=== PATIENT | male | born 1990 | race Caucasian/White ===

== ENCOUNTER 2022-02-01 11:01 | Inpatient (IN) ==
[2022-02-01 12:55] LABS: ABS Eosinophils 0.1 10^3/ul (0-0.6); ABS Lymphocytes 1.3 10^3/ul (1.0-4.8); ABS Monocytes 0.8 10^3/ul (0-0.8); ABS Neutrophils 8.6 10^3/ul (1.5-7.7); Eosinophil % 0.9 %; Hematocrit 41 % (42-52); Hemoglobin 14.3 g/dL (14.0-18.0); Lymphocyte % 11.9 %; Mean Corpuscular HGB Conc 35 g/dL (31-36); Mean Corpuscular Hemoglobin 30 pg (27-31); Mean Corpuscular Volume 88 fL (80-94); Mean Platelet Volume 8.1 fL (7.4-10.4); Platelet Count 360 10^3/uL (150-450); Red Blood Count 4.71 10^6 /uL (4.18-5.48); Red Cell Distribution Width 13 % (10-15); White Blood Count 10.8 10^3/uL (3.5-10.8)
[2022-02-01 13:37] LABS: ALT 77 U/L (7-52); AST 43 U/L (13-39); Acetaminophen < 15 mcg/mL; Albumin 5.1 g/dL (3.2-5.2); Albumin/Globulin Ratio 2.1 (1-3); Alcohol, S < 13 mg/dL (<13); Alkaline Phosphatase 69 U/L (35-149); Anion Gap 7 mmol/L (2-11); Blood Urea Nitrogen 7 mg/dL (6-24); CO2 Carbon Dioxide 29 mmol/L (22-32); Chloride 103 mmol/L (101-111); Globulin 2.4 g/dL (2-4); Glucose 106 mg/dL (70-100); Lithium < 0.10 mmol/L (0.6-1.2); Potassium 3.9 mmol/L (3.5-5.0); Salicylate < 2.50 mg/dL (<30); Sodium 139 mmol/L (135-145); Total Protein 7.5 g/dL (6.4-8.9); Valproic Acid < 13.0 mcg/mL (50-100); eGFR CKD-EPI 94.7 (>60)
[2022-02-01] MEDS ORDERED: Haloperidol 5 mg/ml SDV IV/IM 5 MG/ML AMP IM ONE (13:45)
[2022-02-01] MEDS ORDERED: Lorazepam PYXIS KEY PRN (13:45)
[2022-02-01] MEDS ORDERED: LORazepam 2 mg VIAL 1 ml IM ONE (13:45)
[2022-02-01 13:50] LABS: TSH Ultra Thyroid Stim Horm 2.62 mcIU/mL (0.34-5.60)
[2022-02-01 15:06] LABS: Urine Benzodiazepine Screen None Detected (None Detect); Urine Cannabinoids Screen Presumptive Positive (None Detect); Urine Opiates Screen None Detected (None Detect)
[2022-02-01] MEDS ORDERED: Nicotine GUM 4MG FRUIT FLAVOR PO PRN (16:56)
[2022-02-01] MEDS ORDERED: Al Hydrox/Mg Hydrox/Simet LIQ 30 ML UDC PO PRN (16:56)
[2022-02-03] MEDS ORDERED: OLANZapine 10 mg TAB*ODT PO ONE (11:07)
[2022-02-03] MEDS ORDERED: OLANZapine 10 mg TAB*ODT PO PRN (19:55)
[2022-02-05] MEDS ORDERED: Paliperidone SUSTENNA 234 MG/1.5 ML IM ONE (14:00)
[2022-02-08 07:41] LABS: HDL Cholesterol 45.2 mg/dL
[2022-02-08] MEDS ORDERED: Paliperidone SUSTENNA 156 MG/1 ML IM ONE (15:00)
[2022-02-09 07:40] VITALS: BP 155/83
== END 2022-02-09 11:02 | disposition home or self-care (01) | DRG 750 ==
LOC: ED 11:01 → EDHOLD 16:56 → BSU 17:30
PROVIDERS: ADMIT Psychiatry & Neurology Psychiatry; ATTEND Psychiatry & Neurology Psychiatry

== ENCOUNTER 2023-09-22 04:59 | Inpatient (IN) ==
[2023-09-22 05:42] LABS: ABS Basophils 0.1 10^3/uL (0.0-0.1); ABS Eosinophils 0.3 10^3/uL (0.0-0.5); ABS Lymphocytes 1.5 10^3/uL (1.0-4.8); ABS Monocytes 0.7 10^3/uL (0.0-1.1); ABS Neutrophils 5.2 10^3/uL (1.5-7.6); Eosinophil % 3.8 %; Hematocrit 39.5 % (38-53); Hemoglobin 13.4 g/dL (13.2-16.3); Lymphocyte % 19.7 %; Mean Corpuscular Hemoglobin 28.8 pg (27-33); Mean Corpuscular Hgb Conc 34.1 g/dL (31-36); Mean Corpuscular Volume 84.5 fL (80-97); Mean Platelet Volume 7.8 fL (7.5-11.2); Platelet Count 250 10^3/uL (150-450); Red Blood Count 4.67 10^6/uL (4.06-5.63); Red Cell Distribution Width 14.3 % (12-17); White Blood Count 7.8 10^3/uL (3.6-10.2)
[2023-09-22 06:09] LABS: ALT 13 U/L (7-52); AST 20 U/L (13-39); Albumin 4.7 g/dL (3.2-5.2); Albumin/Globulin Ratio 1.9 (1-3); Alkaline Phosphatase 55 U/L (35-149); Anion Gap 11 mmol/L (2-16); Blood Urea Nitrogen 13 mg/dL (6-24); CO2 Carbon Dioxide 24 mmol/L (22-32); Calcium 9.5 mg/dL (8.6-10.3); Chloride 104 mmol/L (101-111); Creatinine, Serum 0.86 mg/dL (0.67-1.17); Globulin 2.5 g/dL (2-4); Glucose 96 mg/dL (70-100); Potassium 3.7 mmol/L (3.5-5.0); Sodium 139 mmol/L (135-145); Total Bilirubin 0.4 mg/dL (0.2-1.0); Total Protein 7.2 g/dL (6.4-8.9)
[2023-09-22 06:21] LABS: Acetaminophen < 15 mcg/mL; Alcohol, S < 13 mg/dL (<13)
[2023-09-22 06:30] LABS: Urine Appearance Clear; Urine Bilirubin Negative (Negative); Urine Blood Negative (Negative); Urine Color Light-Yellow; Urine Glucose Negative (Negative); Urine Ketones Negative (Negative); Urine Nitrite Negative (Negative); Urine Protein Negative (Negative); Urine Specific Gravity 1.017 (1.002-1.030); Urine Urobilinogen Negative (Negative)
[2023-09-22 06:46] LABS: Urine Benzodiazepine Screen None Detected (None Detect); Urine Cannabinoids Screen Presumptive Positive (None Detect); Urine Opiates Screen None Detected (None Detect)
[2023-09-22] MEDS ORDERED: Al Hydrox/Mg Hydrox/Simet LIQ 30 ML UDC PO PRN (08:01)
[2023-09-22] MEDS: Haloperidol 5 mg/ml SDV IV/IM 5 MG/ML AMP IM ONE (08:07)
[2023-09-22] MEDS: diazePAM INJ CARPUJECT 5 MG/ML SYRINGE IM ONE (08:07)
[2023-09-22] MEDS: Vitamin THERAPEUTIC TAB PO SCH (11:03)
[2023-09-23] MEDS: Paliperidone SUSTENNA 234 MG/1.5 ML IM ONE (12:08)
[2023-09-24] MEDS: LORazepam 2 mg VIAL 1 ml ONE (18:07)
[2023-09-24] MEDS: Haloperidol 5 mg/ml SDV IV/IM 5 MG/ML AMP ONE (18:07)
[2023-09-26 08:16] LABS: HDL Cholesterol 52.7 mg/dL
[2023-09-27] MEDS: Saline NASAL SPRAY 0.65% BTL BOTH NARES PRN (15:37)
[2023-09-29 10:27] VITALS: BP 118/69
[2023-10-23] MEDS ORDERED: Paliperidone SUSTENNA 234 MG/1.5 ML IM ONE (09:00)
== END 2023-09-29 11:20 | disposition home or self-care (01) | DRG 753 ==
LOC: ED 04:59 → EDHOLD 08:01 → BSU 10:27
PROVIDERS: ADMIT Psychiatry & Neurology Psychiatry; ATTEND Psychiatry & Neurology Psychiatry

== ENCOUNTER 2023-11-07 14:05 | Inpatient (IN) ==
[2023-11-07] MEDS ORDERED: Droperidol 5 MG/2 ML 2 ML VIAL ONE (14:10)
[2023-11-07] MEDS ORDERED: Midazolam 5 mg/ml concentrated 5 mg/ml 1 ml VIAL ONE (14:10)
[2023-11-07] MEDS: Midazolam 5 mg/ml concentrated 5 mg/ml 1 ml VIAL INJ ONE (14:17)
[2023-11-07] MEDS: Droperidol 5 MG/2 ML 2 ML VIAL IM ONE (14:17)
[2023-11-07] MEDS: Lactated Ringers 1000 ml BAG 1,000 ML IV ONE ×2 (14:44→16:19)
[2023-11-07 14:54] LABS: ABS Eosinophils 0.4 10^3/uL (0.0-0.5); ABS Lymphocytes 1.3 10^3/uL (1.0-4.8); ABS Monocytes 0.8 10^3/uL (0.0-1.1); ABS Neutrophils 5.9 10^3/uL (1.5-7.6); Eosinophil % 4.4 %; Hemoglobin 14.4 g/dL (13.2-16.3); Lymphocyte % 15.4 %; Mean Corpuscular Hemoglobin 29.4 pg (27-33); Mean Corpuscular Hgb Conc 34.4 g/dL (31-36); Mean Corpuscular Volume 85.4 fL (80-97); Mean Platelet Volume 7.6 fL (7.5-11.2); Platelet Count 329 10^3/uL (150-450); Red Blood Count 4.91 10^6/uL (4.06-5.63); Red Cell Distribution Width 13.6 % (12-17); White Blood Count 8.4 10^3/uL (3.6-10.2)
[2023-11-07 15:21] LABS: ALT 12 U/L (7-52); AST 17 U/L (13-39); Acetaminophen < 15 mcg/mL; Albumin 4.9 g/dL (3.2-5.2); Albumin/Globulin Ratio 1.9 (1-3); Alkaline Phosphatase 68 U/L (35-149); Anion Gap 8 mmol/L (2-16); Blood Urea Nitrogen 11 mg/dL (6-24); CO2 Carbon Dioxide 24 mmol/L (22-32); Calcium 9.9 mg/dL (8.6-10.3); Chloride 102 mmol/L (101-111); Creatine Kinase 193 U/L (10-223); Globulin 2.6 g/dL (2-4); Glucose 91 mg/dL (70-100); Potassium 3.8 mmol/L (3.5-5.0); Salicylate < 2.50 mg/dL (<30); Sodium 134 mmol/L (135-145); Total Bilirubin 0.8 mg/dL (0.2-1.0); Total Protein 7.5 g/dL (6.4-8.9); eGFR CKD-EPI 102.6 (>60)
[2023-11-07 15:31] LABS: TSH Ultra Thyroid Stim Horm 2.51 mcIU/mL (0.34-5.60)
[2023-11-07 16:15] LABS: Alcohol, S < 13 mg/dL (<13)
[2023-11-07 19:45] LABS: Urine Appearance Clear; Urine Bilirubin Negative (Negative); Urine Blood Negative (Negative); Urine Color Light-Yellow; Urine Glucose Negative (Negative); Urine Ketones Trace (Negative); Urine Nitrite Negative (Negative); Urine Protein Negative (Negative); Urine Urobilinogen Negative (Negative)
[2023-11-07 20:09] LABS: Urine Benzodiazepine Screen Presumptive Positive (None Detect); Urine Cannabinoids Screen Presumptive Positive (None Detect); Urine Opiates Screen None Detected (None Detect)
[2023-11-07] MEDS: diazePAM INJ CARPUJECT 5 MG/ML SYRINGE IV ONE (22:06)
[2023-11-07] MEDS: chlorproMAZINE 25 MG/ML 2 ML (50 MG) IM ONE (23:20)
[2023-11-07] MEDS: chlorproMAZINE 25 MG/ML 2 ML (50 MG) ONE (23:36)
[2023-11-08] MEDS: diazePAM INJ CARPUJECT 5 MG/ML SYRINGE IV ONE (15:09)
[2023-11-09] MEDS: chlorproMAZINE 25 MG/ML 2 ML (50 MG) IM ONE (12:27)
[2023-11-09] MEDS: chlorproMAZINE 25 MG/ML 2 ML (50 MG) ONE (13:37)
[2023-11-14] MEDS: Al Hydrox/Mg Hydrox/Simet LIQ 30 ML UDC PO PRN (13:43)
[2023-11-16] MEDS: Paliperidone SUSTENNA 234 MG/1.5 ML IM ONE (16:43)
[2023-11-17] MEDS ORDERED: Paliperidone SUSTENNA 234 MG/1.5 ML IM ONE (09:00)
[2023-11-17 09:04] LABS: HDL Cholesterol 48.8 mg/dL
[2023-11-19] MEDS: Vitamin THERAPEUTIC TAB PO SCH (07:36)
[2023-11-23] MEDS: Fluticasone NASAL SPRAY 50MCG 16 gm SPRAY BTL BOTH NARES SCH (16:49)
[2023-11-28 09:19] VITALS: BP 112/68
== END 2023-11-28 12:03 | disposition home or self-care (01) | DRG 753 ==
LOC: ED 14:05 → EDHOLD 19:54 → BSU 20:55
PROVIDERS: ADMIT Psychiatry & Neurology Psychiatry; ATTEND Psychiatry & Neurology Psychiatry